=== PATIENT | female | born 1950 | race Asian ===

== ENCOUNTER 2024-10-13 10:58 | Emergency (ER) | payer MEDICAID, OTHER ==
[~2024-10-13] VITALS: Ht 149.9 cm; Wt 59.0 kg
[2024-10-13 12:01] VITALS: BP 163/58; PULSE 81; RESP 20; TEMP 97.4; O2SAT 98
[2024-10-13] MEDS: HYDROcodone-ACET 5/325MG TAB PO ONE (13:01)
[2024-10-13] MEDS: KETOROLAC TROMETH 30 MG/ML 1ML VIAL IM ONE (13:02)
--- NOTE | 2024-10-13 13:40 | ED.PDOC ---
History of Present Illness HPI Comments This is a 74-year-old female that comes in with low back pain. She states it started on Monday in the right hip now radiates down to her leg. Denies any injuries denies any twisting or any falls. She has no urinary symptoms but family is requesting a urinalysis. Chief Complaint: Back Pain Time Seen by MD: 11:24 Reviewed Notes: Nurses Notes, Medications, Allergies Allergies: Coded Allergies: NO KNOWN ALLERGIES (Unverified , 10/13/24) Home Meds Active Scripts Ibuprofen Micronized (Ibuprofen) 600 Mg Tab, 600 MG PO Q6HPRN PRN for 5 Days, #20 TAB Prov:FARIHA BIANCHI TRAINING COORDINATOR 10/13/24 Information Source: Patient, Relative (Child) Mode of Arrival: Ambulatory Past Medical History PAST MEDICAL HISTORY: Cancer, DM Surgical History (Other): Mastectomy Social History Smoker: Non-Smoker Alcohol: Denies ETOH Use Drugs: Denies Drug Use Lives In: Home Musculoskeletal: reports: back pain, joint swelling, muscle pain, muscle stiffness Physical Exam General Appearance: No Apparent Distress, None, Normal HEENT: Normal ENT Inspection, Pale Conjuntivae (R), PERRL/EOMI, TM Abnormal (R) Neck: Non-Tender, Normal Inspection Respiratory: Lungs Clear, No Respiratory Distress, Normal Breath Sounds Cardiovascular: Regular Rate/Rhythm Breast Exam: Deferred Gastrointestinal: Non Tender, Normal Bowel Sounds, Soft Genitalia: Deferred Pelvic: Deferred Rectal: Deferred Extremities: Other (Pain over the right hip extending into the right lower leg. Consistent with sciatica) Neurologic: Alert, Normal Affect, Normal Mood Cerebellar Function: Normal Reflexes: NOT DONE Skin: Dry, Normal Color, Warm Lymphatic: No Adenopathy Was a procedure done? Was a procedure done?: No Differential Dx Considerations may include: sciatica X-Ray, Labs, Meds, VS Vital Signs Date Time Temp Pulse Resp B/P (MAP) Pulse Ox O2 Delivery O2 Flow Rate FiO2 10/13/24 12:01 97.4 81 20 163/58 (93) 98 97.4 10/13/24 11:20 97.4 81 20 163/58 (93) 98 Lab Test 10/13/24 14:21 Range/Units Urine Color Yellow Yellow Urine Clarity Turbid H Clear Urine pH 5.5 5.0-9.0 Urine Specific [place] 1.007 1.001-1.035 Urine Protein 2+ H Negative Urine Ketones Negative Negative Urine Blood Negative Negative /uL Urine Nitrite Negative Negative Urine Bilirubin Negative Negative Urine Urobilinogen Normal Negative mg/dL Urine Leukocyte Esterase 2+ Negative /uL Urine Glucose 3+ H Normal mg/dL Current Medications Medications (Trade) Dose Ordered Sig/Janene Route Start Time Stop Time Status Last Admin Ketorolac Tromethamine (Toradol Injection) 30 mg ONCE ONCE IM 10/13/24 13:00 10/13/24 13:01 DC 10/13/24 13:02 Acetaminophen/ Hydrocodone Bitart (Peacham 5/325MG Tab) 1 tab ONCE ONCE PO 10/13/24 13:00 10/13/24 13:01 DC 10/13/24 13:01 X-Ray, Labs, Meds, VS Comment Patient seen and examined by me. Most likely sciatica pain patient has no history of falls or injury. No x-rays are indicated. Family has requested urinalysis some waiting for that result. Patient will be given a Toradol 30 mg IM as well as a Peacham 5 mg for pain. Patient does feel better after the injection and the meds she does show that she has an early urinary tract infection I will treat her with antibiotics.. Patient will also be given some anti-inflammatories to help with pain. Time of 1ST Reevaluation: 14:33 Reevaluation 1ST: Improved Patient Education/Counseling: Diagnosis, Treatment, Prognosis, Need For Follow Up Family Education/Counseling: Diagnosis, Treatment, Prognosis, Need For Follow Up Departure 1 Departure Time of Disposition: 14:33 Impression: Primary Impression: Lumbar sprain Additional Impression: UTI (urinary tract infection) Disposition: 01 HOME / SELF CARE / HOMELESS Condition: Good Additional Instructions: Please finish all the antibiotics as directed Drink lots of liquids Make sure you use the bathroom as needed Take the anti-inflammatories with food for pain Do not hold your urine e-Prescriptions Sulfamethoxazole W/Trimethopri (Bactrim Ds Tablet) 1 Tab Tb 1 TAB PO BID for 7 Days, #14 TAB Prov: FARIHA BIANCHI TRAINING COORDINATOR 10/13/24 Ibuprofen Micronized (Ibuprofen) 600 Mg Tab 600 MG PO Q6HPRN PRN for 5 Days, #20 TAB Prov: FARIHA BIANCHI TRAINING COORDINATOR 10/13/24 Discharged With: Self, Relative (Sibling) Critical Care Note Critical Care Time?: No Stability Stability form required: FARIHA Olmedo TRAINING COORDINATOR Oct 13, 2024 13:40
[2024-10-13 14:25] LABS: Urine Blood Negative /uL (Negative); Urine Clarity Turbid (Clear); Urine Color Yellow (Yellow); Urine Protein, UAD 2+ (Negative); Urine Specific Gravity 1.007 (1.001-1.035); Urine Urobilinogen Normal (Negative); Urine pH 5.5 (5.0-9.0)
[2024-10-13] MEDS ORDERED: IBUP1TAB5 PO (14:38)
[2024-10-13] MEDS ORDERED: BACDST PO (14:47)
== END 2024-10-13 14:49 | disposition home or self-care (01) ==
LOC: ER 10:58
DX: S33.5XXA Sprain of ligaments of lumbar spine, initial encounter (principal); N39.0 Urinary tract infection, site not specified; E11.9 Type 2 diabetes mellitus without complications
CPT/HCPCS: 81003; 96372; 99283; J1885

== ENCOUNTER 2024-11-05 12:56 | Emergency (ER) | payer MEDICAID ==
[~2024-11-05] VITALS: Ht 149.9 cm; Wt 60.7 kg
[~2024-11-05 12:56] MED LIST: BACDST PO; IBUP1TAB5 PO
--- NOTE | 2024-11-05 13:20 | ED.PDOC ---
History of Present Illness(SKN HPI Comments 74 year old female brought in by daughter presents to the ED with chief complaint of rash. Daughter reports that the patient had started to have a rash to her bilateral lower legs that is itchy for the patient since 2 weeks ago. Daughter relays that the patient has also had a wound to her right elbow that has not healed completely for about a month now. Patient denies any discharge, fever, chills, dizziness, N/V, or chest pain. Chief Complaint: Lower Extremity Time Seen by MD: 13:15 History of Present Illness: Nurses Notes, Medications, Allergies Allergies: Coded Allergies: NO KNOWN ALLERGIES (Unverified , 10/13/24) Home Meds Active Scripts Sulfamethoxazole W/Trimethopri (Bactrim Ds Tablet) 1 Tab Tb, 1 TAB PO BID for 7 Days, #14 TAB Prov:FARIHA BIANCHIP 10/13/24 Ibuprofen Micronized (Ibuprofen) 600 Mg Tab, 600 MG PO Q6HPRN PRN for 5 Days, #20 TAB Prov:FARIHA BIANCHI [facility] 10/13/24 Information Source: Patient, Relative Mode of Arrival: Ambulatory Severity: Moderate Timing: Weeks Duration: Since onset Prehospital treatment: None Location: Arm, Leg Mechanism: Spontaneous Onset Developed: Pruritus, Rash Object: None Condition of Object: None Retained Foreign Body: No Immunization Status of Animal: NA Tetanus: Unknown History of: Diabetes Past Medical History PAST MEDICAL HISTORY: Cancer, DM, HTN Surgical History (Other): Left mastectomy STRATEGIC PROCUREMENT MANAGER History: Denies all STRATEGIC PROCUREMENT MANAGER Hx Family History Family History: Reviewed,noncontributory to illness Social History Smoker: Non-Smoker Alcohol: Denies ETOH Use Drugs: Denies Drug Use Lives In: Home Constitutional: denies: chills, diaphoresis, fatigue, fever, malaise, sweats, weakness, others EENTM: denies: blurred vision, double vision, ear bleeding, ear discharge, ear drainage, ear pain, ear ringing, eye pain, eye redness, hearing loss, mouth pain, mouth swelling, nasal discharge, nose bleeding, nose congestion, nose pain, photophobia, tearing, throat pain, throat swelling, voice changes, others Respiratory: denies: cough, hemoptysis, orthopnea, SOB at rest, shortness of breath, SOB with excertion, stridor, wheezing, others Cardiovascular: denies: chest pain, dizzy spells, diaphoresis, Dyspnea on exertion, edema, irregular heart beat, left arm pain, lightheadedness, palpitations, PND, syncope, others Gastrointestinal: denies: abdomen distended, abdominal pain, blood streaked bowels, constipated, diarrhea, dysphagia, difficulty swallowing, hematemesis, melena, nausea, poor appetite, poor fluid intake, rectal bleeding, rectal pain, vomiting, others Genitourinary: denies: abnormal vagina bleeding, burning, dyspareunia, dysuria, flank pain, frequency, hematuria, incontinence, pain, , vagina discharge, urgency, others Neurological: denies: dizziness, fainting, headache, left sided numbness, left sided weakness, numbness, paresthesia, pre-existing deficit, right sided numbness, right sided weakness, seizure, speech problems, tingling, tremors, weakness, others Musculoskeletal: denies: back pain, gout, joint pain, joint swelling, muscle pain, muscle stiffness, neck pain, others Integumetry: reports: rash (To right elbow and bilateral lower legs); denies: bruises, change in color, change in hair/nails, dryness, laceration, lesions, lumps, wounds, others Allergic/Immunocompromised: denies: Difficulty Healing, Frequent Infections, Hives, Itching, others Hematologic/Lymphatic: denies: anemia, blood clots, easy bleeding, easy bruising, swollen glands, others Endocrine: denies: excessive hunger, excessive sweating, excessive thirst, excessive urination, flushing, intolerance to cold, intolerance to heat, unexplained weight gain, unexplained weight loss, others Psychiatric: denies: anxiety, bipolar disorder, depression, hopeless, panic disorder, schizophrenia, sleepless, suicidal, others All Other Systems: Reviewed and Negative Physical Exam General Appearance: No Apparent Distress, Normal HEENT: Normal ENT Inspection, Pharynx Normal, TMs Normal Neck: Full Range of Motion, Non-Tender, Normal, Normal Inspection Respiratory: Chest Non-Tender, Lungs Clear, No Accessory Muscle Use, No Respiratory Distress, Normal Breath Sounds Cardiovascular: No Edema, No JVD, No Murmur, No Gallop, Normal Peripheral Pulses, Regular Rate/Rhythm Breast Exam: Deferred Gastrointestinal: No Organomegaly, Non Tender, No Pulsatile Mass, Normal Bowel Sounds, Soft Genitalia: Deferred Pelvic: Deferred Rectal: Deferred Extremities: No calf tenderness, Normal capillary refill, Normal inspection, Normal range of motion, Non-tender, No pedal edema Musculoskeletal : Apperance: Normal Neurologic: Alert, robotics systems engineer II-XII nml as Tested, No Motor Deficits, Normal Affect, Normal Mood, No Sensory Deficits Cerebellar Function: Normal Reflexes: Normal Skin: Dry, Normal Color, Rash (Dry, scaly rash noted to right elbow), Warm, Other (Red patches noted to the lower pretibial portions of bilateral legs) Lymphatic: No Adenopathy Was a procedure done? Was a procedure done?: No Differential Diagnosis (INTG) Differential Diagnosis: Atopic dermatitis, Candidiasis, Cellulitis, Contact Dermatitis, Drug Reaction, Erysipelas, Impetigo, Scabies, Tinea, Urticaria, Viral exanthema, Other (stasis dermatitis, ) X-Ray, Labs, Meds, VS Vital Signs Date Time Temp Pulse Resp B/P (MAP) Pulse Ox O2 Delivery O2 Flow Rate FiO2 11/05/24 13:15 98.1 93 18 167/44 (85) 100 Lab Test 11/05/24 13:26 11/05/24 13:15 Range/Units White Blood Count 9.1 4.4-10.8 10^3/uL Red Blood Count 3.11 L 4.0-5.20 10^6/uL Hemoglobin 10.2 L 12.2-16.2 g/dL Hematocrit 30.5 L 36.0-46.0 % Mean Corpuscular Volume 98.2 80.0-100.0 fL Mean Corpuscular Hemoglobin 32.9 H 28.0-32.0 pg Mean Corpuscular Hemoglobin Concent 33.5 32.0-36.0 g/dL Red Cell Distribution Width 13.0 11.8-14.3 % Platelet Count 136 L 140-450 10^3/uL Mean Platelet Volume 7.3 6.9-10.8 fL Neutrophils (%) (Auto) 51.0 37.0-80.0 % Lymphocytes (%) (Auto) 33.0 10.0-50.0 % Monocytes (%) (Auto) 8.2 0.0-12.0 % Eosinophils (%) (Auto) 7.2 H 0.0-7.0 % Basophils (%) (Auto) 0.6 0.0-2.0 % Neutrophils # (Auto) 4.6 1.6-8.6 10 ^3/uL Lymphocytes # (Auto) 3.0 0.4-5.4 10 ^3/uL Monocytes # (Auto) 0.7 0-1.3 10 ^3/uL Eosinophils # (Auto) 0.7 0-0.8 10 ^3/uL Basophils # (Auto) 0.1 0-0.2 10 ^3/uL Nucleated Red Blood Cells 0.0 % Sodium Level 140 136-145 mmol/L Potassium Level 5.0 3.5-5.1 mmol/L Chloride Level 113 H 98-107 mmol/L Carbon Dioxide Level 19 L 20-31 mmol/L Anion Gap 8 5-15 Blood Urea Nitrogen 39 H 9-23 mg/dL Creatinine 2.00 H 0.550-1.02 mg/dL Glomerular Filtration Rate Calc 25 >90 mL/min BUN/Creatinine Ratio 19.5 10.0-20.0 Serum Glucose 195 H 74-106 mg/dL Calcium Level 9.4 8.7-10.4 mg/dL POC Glucose 197 H 70-106 mg/dl Time of 1ST Reevaluation: 14:15 Reevaluation 1ST: Unchanged Patient Education/Counseling: Diagnosis, Treatment, Prognosis, Need For Follow Up Family Education/Counseling: Diagnosis, Treatment, Prognosis, Need For Follow Up Additional Information - The following tests were ordered, and results were reviewed by me: BMP, CBC, Accucheck - Additional information was gathered from interviewing the following independent Historian: Daughter - I discussed treatments and results with medical personnel and family. 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 rash on the legs do not appear to be cellulitic nor stasis dermatitic. i will start her on topical triamcinolone. she needs to keep her BS better controlled. she has known renal insufficiency. the rash on her right elbow appears to be tinea. i will start her on antifungal Departure 1 Departure Time of Disposition: 15:12 Impression: Primary Impression: Diabetic necrobiosis lipoidica Additional Impression: Dermatophytosis Disposition: HOME / SELF CARE / HOMELESS Condition: Good e-Prescriptions Ketoconazole (Ketoconazole) 2 % Cre 1 APPLIC TOP BID for 10 Days, #60 GRAMS 1 Refill apply on rash on your elbow, but not legs Prov: MARLA MARMOLEJO MD 11/05/24 Triamcinolone Acetonide (Triamcinolone Acetonide) 0.1 % Oin 1 APPLIC TOP BID for 10 Days, #454 GRAMS apply on rash on your legs, not elbow Prov: MARLA MARMOLEJO MD 11/05/24 Discharged With: Self Critical Care Note Critical Care Time?: No Stability Stability form required: No Heart Score Heart Score: Heart Score Response (Comments) Value History N/A 0 EKG N/A 0 Age N/A 0 Risk Factors N/A 0 Troponin N/A 0 Total 0 I personally scribed for MARLA MARMOLEJO MD ([email or web address]) on 11/05/24 at 13:20. Electronically submitted by Marc Holland ([email or web address]). I personally scribed for MARLA MARMOLEJO MD ([email or web address]) on 11/05/24 at 13:29. Electronically submitted by Marc Holland ([email or web address]). I personally scribed for MARLA MARMOLEJO MD ([email or web address]) on 11/05/24 at 14:00. Electronically submitted by Marc Holland ([email or web address]). I personally scribed for MARLA MARMOLEJO MD ([email or web address]) on 11/05/24 at 14:00. Electronically submitted by Marc Holland ([email or web address]). MARLA MARMOLEJO MD Nov 05, 2024 13:20
[2024-11-05 13:51] LABS: Basophils # (auto) 0.1 10 ^3/uL (0-0.2); Basophils % (auto) 0.6 % (0.0-2.0); Eosinophils # (auto) 0.7 10 ^3/uL (0-0.8); Eosinophils % (auto) 7.2 % (0.0-7.0); Hematocrit 30.5 % (36.0-46.0); Hemoglobin 10.2 g/dL (12.2-16.2); Mean Corpuscular Hemoglobin 32.9 pg (28.0-32.0); Mean Corpuscular Hgb Conc. 33.5 g/dL (32.0-36.0); Mean Corpuscular Volume 98.2 fL (80.0-100.0); Monocytes # (auto) 0.7 10 ^3/uL (0-1.3); Monocytes % (auto) 8.2 % (0.0-12.0); Neutrophils # (auto) 4.6 10 ^3/uL (1.6-8.6); Platelet Count (auto) 136 10^3/uL (140-450); Red Blood Cells 3.11 10^6/uL (4.0-5.20); White Blood Cell 9.1 10^3/uL (4.4-10.8)
[2024-11-05 13:57] LABS: Sodium 140 mmol/L (136-145)
[2024-11-05 13:58] LABS: Anion Gap 8 (5-15)
[2024-11-05 13:59] LABS: Calcium 9.4 mg/dL (8.7-10.4)
[2024-11-05 14:04] LABS: BUN/Creatinine Ratio 19.5 (10.0-20.0)
[2024-11-05 14:07] LABS: Blood Urea Nitrogen 39 mg/dL (9-23); Carbon Dioxide 19 mmol/L (20-31); Chloride 113 mmol/L (98-107); Glucose 195 mg/dL (74-106)
[2024-11-05] MEDS ORDERED: KETO2CRE4 TOP (15:16)
[2024-11-05] MEDS ORDERED: TRIA0.1O TOP (15:16)
[2024-11-05 15:31] VITALS: BP 156/51; PULSE 97; RESP 16; TEMP 97.7; O2SAT 100
== END 2024-11-05 15:31 | disposition home or self-care (01) ==
LOC: ER 12:56
DX: E11.620 Type 2 diabetes mellitus with diabetic dermatitis (principal); I10 Essential (primary) hypertension; Z90.12 Acquired absence of left breast and nipple; Z79.899 Other long term (current) drug therapy
CPT/HCPCS: 36415; 80048; 82962; 85025